=== PATIENT | female | born 1935 | race Caucasian/White ===

== ENCOUNTER 2018-05-20 12:16 | Emergency (ER) | payer MEDICARE ==
[~2018-05-20] VITALS: Ht 147.3 cm; Wt 92.1 kg
[~2018-05-20 12:16] MED LIST: CARVEDILOL3.125 MG PO; LEXAPRO10 MG PO; LOSARTAN POTASS25 MG; QUETIAPINE FUM100 MG PO
--- OUTSIDE RECORDS SUMMARY | 2018-05-20 12:18 | XMS REPORT | Clinical Summary ---
Author Author OMAR [facility] Address Unknown Phone Unavailable Care Team Providers Care Rental Clerk Name Role Phone ZakMp Alex PCP Unavailable Bowen Adler 31 Unavailable Allergies Comments Active Allergy Reactions Severity Noted Date Other reaction(s): Other Insomnia, confusion, disorientation. Baclofen 10/11/2016 "climbing the [place]" Propoxyphene Other (See 02/15/2013 Comments) Other reaction(s): Other Severe Insomnia Donepezil Hcl 10/11/2016 "dehydrated" Oxybutynin Other (See 02/15/2013 Comments) Propoxyphene Hcl 10/11/2016 "climbed the [place]", jittery Pseudoephedrine Hcl Other (See 02/15/2013 Comments) "dehydration" Sulfa (Sulfonamide Other (See 02/15/2013 Antibiotics) Comments) Other reaction(s): Cough Cough. Lisinopril Other (See 02/15/2013 Comments) Medications End Date Status Medication Sig Dispensed Refills Start Date Active ascorbic acid (VITAMIN C) Take 1 tablet 0 1000 MG tablet by mouth. Active pantoprazole (PROTONIX) Take 40 mg by 0 40 MG tablet mouth. 5 Active QUEtiapine (SEROQUEL) 25 Take 25 mg by 0 MG tablet mouth. 7 Active tiZANidine (ZANAFLEX) 2 Take 1-2 0 MG tablet tablets every 6 8 hours as needed for muscle spasm or strain. Active cyanocobalamin 500 MCG Take 1 tablet 0 tablet by mouth. Active ferrous sulfate 325 (65 Take 1 tablet 0 FE) MG tablet (325 mg 7 total) by mouth 2 (two) times daily with breakfast and dinner. Active acetaminophen-codeine Take 1 tablet 0 (TYLENOL #3) 300-30 mg by mouth. 8 per tablet Active CRANBERRY FRUIT EXTRACT Take by 0 (CRANBERRY ORAL) mouth. Active methylcellulose, Take by 0 laxative, Powd mouth. Active carvedilol (COREG) 25 MG Take 25 mg by 0 tablet mouth. 8 Active felodipine (PLENDIL) 10 Take 10 mg by 0 MG 24 hr tablet mouth. 8 Active gabapentin (NEURONTIN) Take 300 mg 0 300 MG capsule by mouth. 8 Active losartan (COZAAR) 100 MG Take 100 mg 0 tablet by mouth. 8 Active simvastatin (ZOCOR) 20 MG Take 20 mg by 0 tablet mouth. 8 Active venlafaxine (EFFEXOR-XR) Take 225 mg 0 75 MG 24 hr capsule by mouth. 11/16/2017 Discontinued venlafaxine (EFFEXOR-XR) Take 225 mg 0 75 MG 24 hr capsule by mouth daily. 3 tabs of 75 mg=total of 225 mg daily 11/16/2017 Discontinued carvedilol (COREG) 12.5 TAKE ONE (1) 0 MG tablet TABLET(S) BY 7 MOUTH TWICE A DAY.. 11/16/2017 Discontinued felodipine (PLENDIL) 10 Take 10 mg by 0 MG 24 hr tablet mouth daily . 7 11/16/2017 Discontinued gabapentin (NEURONTIN) Take 300 mg 0 300 MG capsule by mouth. 7 11/16/2017 Discontinued losartan (COZAAR) 100 MG TAKE ONE (1) 0 tablet TABLET(S) BY 6 MOUTH DAILY.. 11/16/2017 Discontinued simvastatin (ZOCOR) 20 MG Take 20 mg by 0 tablet mouth. 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 Last Filed Vital Signs Time Taken Vital Sign Reading 11/16/2017 2:36 PM CDT Blood Pressure 165/74 11/16/2017 2:36 PM CDT Pulse 95 11/16/2017 12:30 PM CDT Temperature 36.6 C (97.9 F) 11/16/2017 2:36 PM CDT Respiratory Rate 20 11/16/2017 12:30 PM CDT Oxygen Saturation 97% - Inhaled Oxygen - Concentration 11/16/2017 12:30 PM CDT Weight 84.4 kg (186 lb) 11/16/2017 12:30 PM CDT Height 147.3 cm (4' 10") 11/16/2017 12:30 PM CDT Body Mass Index 38.87 Plan of Treatment Not on file Implants Device Identifier Shelf Expiration Date Model / Serial / Lot Implanted Type Area Manufactur er 07/14/2014 [id number] / / [id number] Cement,Bone [place] Hv 40gm - Cement/Yemi Left: Knee BIOMET/O.E [id number] ler/Adhesi .C. Implanted: Qty: 2 on 02/25/2013 by Mauro Thorne MD 06/12/2015 [id number] / / [id number] Cement Restrictor,Biostop G 10mm - Cement/Yemi DEPUY [id number] ler/Adhesi SPINE Implanted: Qty: 1 on 02/25/2013 by Mauro Thorne MD 03/12/2014 [id number] / / [id number] Cement Restrictor,Biostop G 10mm - Cement/Yemi DEPUY [id number] ler/Adhesi SPINE Implanted: Qty: 1 on 02/25/2013 by Mauro Thorne MD 05/12/2015 [id number] / / [id number] Cement Restrictor,Biostop G 12mm - Cement/Yemi DEPUY [id number] ler/Adhesi SPINE Implanted: Qty: 1 on 02/25/2013 by Mauro Thorne MD 08/12/2014 [id number] / / [id number] Cement,Bone [place] Hv 40gm - Cement/Yemi BIOMET/O.E [id number] ler/Adhesi .C. Implanted: Qty: 2 on 02/25/2013 by Mauro Thorne MD 04/12/2022 [id number] / / [id number] Biomet 360 Ofset Adaptor 5mm With Left: Knee Screw Implanted: Qty: 1 on 02/25/2013 by Mauro Lemus MD 05/12/2022 [id number] / / [id number] Biomet 360 Offset Adaptor 5mm With Left: Knee Screws Implanted: Qty: 1 on 02/25/2013 by Mauro Lemus MD 03/12/2022 [id number] / / [id number] Vanguard 360 Revision System Ssk Left: Knee 360/0a 360 Distal Femoral Augment 5mm X 60mm Rl/Lm With 80lt Implanted: Qty: 1 on 02/25/2013 by Mauro Lemus MD 07/12/2022 [id number] / / [id number] Vanguard 360 Revision System Ssk Left: Knee 360/Da 360 Distal Femoral Augment [id number] Ll/Rm With Gila Implanted: Qty: 1 on 02/25/2013 by Mauro Lemus MD 01/10/2021 [id number] / / [id number] Vanguard Iuu331/Da360 Knee System Left: Knee Femoral Let-With Screw 60mm Implanted: Qty: 1 on 02/25/2013 by Mauro Lemus MD 01/10/2023 [id number] / / [id number] Biomet 360 Tibial Cruciate Wing Left: Knee Small Implanted: Qty: 1 on 02/25/2013 by Mauro Lemus MD 02/09/2017 [id number] / / [id number] Non-Constrained Vanguard Dcm Tibial Left: Knee Bearing 14 Mm X 63/67 Mm Implanted: Qty: 1 on 02/25/2013 by Mauro Lemus MD 08/12/2021 [id number] / / [id number] Biomet Smooth Knee Stem With Screw Left: Knee 10mm X 80mm Implanted: Qty: 1 on 02/25/2013 by Mauro Lemus MD 02/09/2023 [id number] / / [id number] Biomet 360 Tibial Tray With Ti Left: Knee Locking Bar & Screw 67mm Implanted: Qty: 1 on 02/25/2013 by Mauro Lemus MD Procedures Comments Procedure Name Priority Date/Time Associated Diagnosis CBC W/PLT COUNT & AUTO STAT 11/16/2017 DIFFERENTIAL 1:16 PM CDT BASIC METABOLIC PANEL (7) STAT 11/16/2017 1:16 PM CDT CBC W/PLT COUNT & AUTO STAT 11/16/2017 DIFFERENTIAL 1:16 PM CDT URINALYSIS W/ REFLEX STAT 11/16/2017 URINE CULTURE 12:45 PM CDT URINE CULTURE STAT 11/16/2017 12:45 PM CDT after 05/19/2017 Results * CBC with platelet count + automated diff (11/16/2017 1:16 PM CDT) WBC 9.1 4.0 - 10.0 10e3/L [facility] RBC 3.89 (L) 4.00 - 5.00 10e6/L [facility] Hemoglobin 11.9 (L) 12.0 - 15.0 g/dL [facility] Hematocrit 38.0 36.0 - 45.0 % [facility] MCV 97.6 82.0 - 99.0 fL [facility] MCH 30.7 27.0 - 33.0 pg [facility] MCHC 31.4 (L) 32.0 - 36.0 g/dL [facility] RDW 11.8 10.3 - 14.2 % [facility] Platelets 274 150 - 430 10e3/L [facility] MPV 7.3 6.5 - 10.5 fL [facility] % Neutros 73 % [facility] % Lymphs 16 % [facility] % Monos 9 % [facility] [place] % Eos 1 % [facility] [place] % Baso 1 % [facility] # Neutros 6.68 1.80 - 8.00 10e3/L [facility] # Lymphs 1.47 (L) 1.48 - 4.50 10e3/L [facility] [place] # Monos 0.79 0.00 - 1.30 10e3/L [facility] # Eos 0.11 0.00 - 0.50 10e3/L [facility] # Baso 0.05 0.00 - 0.20 10e3/L [facility] Specimen Blood - Line, Venous Performing Organization Address City/State/Zipcode Phone Number [facility] [address] [place] [address] [facility] * Basic Metabolic Panel (11/16/2017 1:16 PM CDT) Sodium 145 135 - 148 meq/L [facility] Potassium 4.3 3.6 - 5.5 meq/L [facility] Chloride 104 98 - 106 meq/L [facility] CO2 27 24 - 32 meq/L [facility] BUN 20 10 - 26 mg/dL [facility] Creatinine 1.07 0.50 - 1.20 mg/dL [facility] Glucose 137 (H) 70 - 110 mg/dL [facility] Calcium 9.9 8.5 - 10.5 mg/dL [facility] EGFR 49Comment: ESTIMATED GFR IS mL/min/1.73 sq m [facility] NOT ACCURATE CREATININE [facility] CLEARANCE IN [facility] GLOMERULAR FILTRATION RATE. EMERGENCY CENTER, ESTIMATED GFR IS NOT [facility] APPLICABLE FOR DIALYSIS PATIENTS. Specimen Blood - Line, Venous Performing Organization Address City/State/Zipcode Phone Number [facility] [address] [place] [address] [facility], [facility] [place] * Urinalysis w/Microscopic + Reflex to Culture (11/16/2017 12:45 PM CDT) Color, UA Yellow [facility] Clarity, UA Clear [facility] Specific [place], UA 1.015 1.001 - 1.035 [facility] pH, UA 7.0 5.0 - 8.0 [facility] Protein, UA Negative Negative [facility] Glucose, UA Negative Negative [facility] Ketones, UA Trace (A) Negative [facility] Bilirubin, UA Negative Negative [facility], [facility] Blood, UA Negative Negative [facility], [facility] Nitrite, UA Negative Negative [facility], [facility] [place] Leukocytes, UA Trace (A) Negative [facility], [facility] Urobilinogen, UA 0.2 0.2 - 1.0 mg/dL [facility], [facility], [facility] RBC, UA <5 /HPF [facility], [facility], [facility] WBC, UA <5 /HPF [facility], [facility], [facility] SQUAMOUS EPITHELIAL <5 /HPF [facility] Specimen Source [facility], [facility], [facility] Specimen Urine - Urine, Clean Catch Performing Organization Address City/[facility]/Zipcode Phone Number [facility] [address] [place] [address] [facility], [facility] [place] * Urine culture (11/16/2017 12:45 PM CDT) Result See comment [facility] Specimen Urine - Urine, Clean Catch Narrative Performed At <10,000 col/mL Gram Negative kayla of two types [facility] Performing Organization Address City/State/Zipcode Phone Number [facility] [address] [place] [address] MEDICAL CENTER after 05/19/2017 Insurance Payer Benefit Subscriber ID Type Phone Address Plan / Group [employer] xxxxxxxxxxx MEDICARE ADV Advance Directives For more information, please contact: [facility] [address] [place] [address] Date Inactivated Comments Code Status Date Activated 2016 1:33 PM Full Code 10/11/2016 6:56 PM This code status was determined by: Patient 02/25/2013 6:26 PM All possible means of support including;cardiac massage, mechanical ventilation, and defibrillation will be used to support life. Code ONE 02/25/2013 9:48 AM
--- OUTSIDE RECORDS SUMMARY | 2018-05-20 12:18 | XMS REPORT ---
Author Author [facility] Address Unknown Phone Unavailable Care Team Providers Care Learning And Development Specialist Name Role Phone SUMA GUZMAN Unavailable Unavailable FREDA DA SILVA Unavailable Unavailable Problems This patient has no known problems. Allergies, Adverse Reactions, Alerts This patient has no known allergies or adverse reactions. Medications This patient has no known medications. Results Test Description Test Time Test Comments Text Results Atomic Results Result Comments CBC W/PLT COUNT & AUTO DIFFERENTIAL 2017-11-16 13:35:00 WHITE BLOOD CELL COUNT (BEAKER) (test dhkb=637) 9.1 10e3/i? L 4.0-10.0 RED BLOOD CELL COUNT (BEAKER) (test fflk=957) 3.89 10e6/i? L 4.00-5.00 HEMOGLOBIN (BEAKER) (test zceu=805) 11.9 g/dL 12.0-15.0 HEMATOCRIT (BEAKER) (test rkal=249) 38.0 % 36.0-45.0 MEAN CORPUSCULAR VOLUME (BEAKER) (test khmk=335) 97.6 fL 82.0-99.0 MEAN CORPUSCULAR HEMOGLOBIN (BEAKER) (test jhau=741) 30.7 pg 27.0-33.0 MEAN CORPUSCULAR HEMOGLOBIN CONC (BEAKER) (test dbcm=931) 31.4 g/dL 32.0-36.0 RED CELL DISTRIBUTION WIDTH (BEAKER) (test zmjf=816) 11.8 % 10.3-14.2 PLATELET COUNT (BEAKER) (test fiit=807) 274 10e3/i? L 150-430 MEAN PLATELET VOLUME (BEAKER) (test gclw=957) 7.3 fL 6.5-10.5 NEUTROPHILS RELATIVE PERCENT (BEAKER) (test kfer=660) 73 % LYMPHOCYTES RELATIVE PERCENT (BEAKER) (test aque=244) 16 % MONOCYTES RELATIVE PERCENT (BEAKER) (test xltn=474) 9 % EOSINOPHILS RELATIVE PERCENT (BEAKER) (test vhzl=242) 1 % BASOPHILS RELATIVE PERCENT (BEAKER) (test htgc=180) 1 % NEUTROPHILS ABSOLUTE COUNT (BEAKER) (test cdvl=955) 6.68 10e3/i? L 1.80-8.00 LYMPHOCYTES ABSOLUTE COUNT (BEAKER) (test ecsv=047) 1.47 10e3/i? L 1.48-4.50 MONOCYTES ABSOLUTE COUNT (BEAKER) (test ocrq=785) 0.79 10e3/i? L 0.00-1.30 EOSINOPHILS ABSOLUTE COUNT (BEAKER) (test uqpj=850) 0.11 10e3/i? L 0.00-0.50 BASOPHILS ABSOLUTE COUNT (BEAKER) (test hqtp=303) 0.05 10e3/i? L 0.00-0.20 BASIC METABOLIC [id number] 13:34:00* Test Item Value Reference Range Comments SODIUM (BEAKER) (test zfua=028) 145 meq/L 135-148 POTASSIUM (BEAKER) (test imzs=313) 4.3 meq/L 3.6-5.5 CHLORIDE (BEAKER) (test jkfu=948) 104 meq/L 98-106 CO2 (BEAKER) (test gczm=775) 27 meq/L 24-32 BLOOD UREA NITROGEN (BEAKER) (test srex=538) 20 mg/dL 10-26 CREATININE (BEAKER) (test jdhc=182) 1.07 mg/dL 0.50-1.20 GLUCOSE RANDOM (BEAKER) (test ztzn=811) 137 mg/dL 70-110 CALCIUM (BEAKER) (test pttx=912) 9.9 mg/dL 8.5-10.5 EGFR (BEAKER) (test loqa=5135) 49 mL/min/1.73 sq m ESTIMATED GFR IS NOT ACCURATE CREATININE CLEARANCE IN PREDICTING GLOMERULAR FILTRATION RATE. ESTIMATED GFR IS NOT APPLICABLE FOR DIALYSIS PATIENTS. URINALYSIS W/ REFLEX URINE [id number] 12:58:00* Test Item Value Reference Range Comments COLOR (BEAKER) (test pcvg=179) Yellow CLARITY (BEAKER) (test nqmf=121) Clear SPECIFIC GRAVITY UA (BEAKER) (test tafo=553) 1.015 1.001-1.035 PH UA (BEAKER) (test zfxc=369) 7.0 5.0-8.0 PROTEIN UA (BEAKER) (test gceq=869) Negative Negative GLUCOSE UA (BEAKER) (test kvwz=282) Negative Negative KETONES UA (BEAKER) (test nvgj=892) Trace Negative BILIRUBIN UA (BEAKER) (test julz=689) Negative Negative BLOOD UA (BEAKER) (test scqg=938) Negative Negative NITRITE UA (BEAKER) (test ourw=539) Negative Negative LEUKOCYTE ESTERASE UA (BEAKER) (test jkwn=461) Trace Negative UROBILINOGEN UA (BEAKER) (test xjxz=358) 0.2 mg/dL 0.2-1.0 RBC UA-MANUAL (BEAKER) (test uije=5309) <5 /HPF WBC UA-MANUAL (BEAKER) (test bpxg=0958) <5 /HPF SQUAMOUS EPITHELIAL MANUAL (BEAKER) (test jpvr=1025) <5 /HPF SOURCE(BEAKER) (test uggt=0602) URINE [id number] 12:08:00* Test Item Value Reference Range Comments CULTURE (BEAKER) (test bizi=3410) >100,000 col/mL skin blanco HEMOGLOBIN AND [id number] 05:34:00* Test Item Value Reference Range Comments HEMOGLOBIN (BEAKER) (test klzt=146) 9.6 GM/DL 12.0-15.0 HEMATOCRIT (BEAKER) (test uymu=456) 30.7 % 36.0-45.0 VITAMIN B12 AND [id number] 08:18:00* Test Item Value Reference Range Comments VITAMIN B12 (BEAKER) (test cnsl=730) > pg/mL 213-816 FOLATE (BEAKER) (test etiz=484) 10.1 ng/mL >=7.0 Effective 05/31/2014: Folate Reference Range ChangeNew: >=7.0 Previous: >=5.4 [id number] 08:05:00* Test Item Value Reference Range Comments FERRITIN (BEAKER) (test ujhk=894) 7 ng/mL 5-275 Effective 05/31/2014: Reference Range ChangeNew: Male 5-275 Previous: Male 22-322 Female 5-275 Female 10-291 IRON, TIBC, % SAT. (WITHOUT FERRITIN)2016-10-12 07:30:00* Test Item Value Reference Range Comments IRON (BEAKER) (test hbgg=422) 210 ug/dL 40-160 TOTAL IRON BINDING CAPACITY (BEAKER) (test jlfm=041) 313 ug/dL 250-450 IRON % SATURATION (2) (BEAKER) (test wlak=1724) 67 % 20-55 HEMOGLOBIN AND [id number] 07:21:00* Test Item Value Reference Range Comments HEMOGLOBIN (BEAKER) (test gala=974) 8.1 GM/DL 12.0-15.0 HEMATOCRIT (BEAKER) (test qpfh=826) 25.2 % 36.0-45.0 RETICULOCYTE [id number] 07:09:00* Test Item Value Reference Range Comments RETICULOCYTE COUNT PCT (BEAKER) (test ffvw=382) 1.6 % 0.4-2.9 [id number] 13:14:00* Test Item Value Reference Range Comments PROTIME (BEAKER) (test twib=200) 13.2 seconds 11.7-14.7 INR (BEAKER) (test iwuo=866) 1.0 <=5.9 PARTIAL THROMBOPLASTIN TIME (BEAKER) (test hgiw=695) 28.3 seconds 22.5-36.0 RECOMMENDED COUMADIN/WARFARIN INR THERAPY RANGESSTANDARD DOSE: 2.0 - 3.0 Inclu johnie: PROPHYLAXIS for venous thrombosis, systemic embolization; TREATMENT for theron ous thrombosis and/or pulmonary embolus.HIGH RISK: Target INR is 2.5-3.5 for pat ients with mechanical heart valves.URINALYSIS W/ [id number] 13:01:00 * Test Item Value Reference Range Comments COLOR (BEAKER) (test wkqg=973) Light Yellow CLARITY (BEAKER) (test eyfk=667) Clear SPECIFIC GRAVITY UA (BEAKER) (test ojio=037) 1.005 1.001-1.035 PH UA (BEAKER) (test gagl=887) 7.5 5.0-8.0 PROTEIN UA (BEAKER) (test cycs=476) Negative Negative GLUCOSE UA (BEAKER) (test mkza=217) Negative Negative KETONES UA (BEAKER) (test wktj=369) Negative Negative BILIRUBIN UA (BEAKER) (test ijfk=736) Negative Negative BLOOD UA (BEAKER) (test nkrk=149) Negative Negative NITRITE UA (BEAKER) (test fxrb=569) Negative Negative LEUKOCYTE ESTERASE UA (BEAKER) (test foqn=261) Moderate Negative UROBILINOGEN UA (BEAKER) (test oacu=669) 0.2 mg/dL 0.2-1.0 RBC UA (BEAKER) (test bqjo=151) < /HPF WBC UA (BEAKER) (test llvc=162) 6 /HPF BACTERIA (BEAKER) (test ejvd=280) Occasional SQUAMOUS EPITHELIAL (BEAKER) (test gurp=732) 4 /HPF HYALINE CASTS (BEAKER) (test ypyc=159) 2 /LPF SOURCE(BEAKER) (test irew=7457) [id number] 12:48:00* Test Item Value Reference Range Comments LIPASE (BEAKER) (test kjfm=067) 25 U/L 8-78 [id number] 12:48:00* Test Item Value Reference Range Comments AMYLASE (BEAKER) (test mgcf=018) 51 U/L 25-125 BASIC METABOLIC [id number] 12:48:00* Test Item Value Reference Range Comments SODIUM (BEAKER) (test goxh=028) 140 meq/L 136-145 POTASSIUM (BEAKER) (test vaza=453) 4.1 meq/L 3.5-5.1 CHLORIDE (BEAKER) (test ycon=505) 105 meq/L 98-107 CO2 (BEAKER) (test tqxj=025) 24 meq/L 22-29 BLOOD UREA NITROGEN (BEAKER) (test rfof=512) 13 mg/dL 7-21 CREATININE (BEAKER) (test rkbp=960) 1.20 mg/dL 0.57-1.25 GLUCOSE RANDOM (BEAKER) (test pjah=523) 129 mg/dL 70-105 CALCIUM (BEAKER) (test pbrk=366) 8.8 mg/dL 8.4-10.2 EGFR (BEAKER) (test nkic=5508) 43 mL/min/1.73 sq m ESTIMATED GFR IS NOT ACCURATE CREATININE CLEARANCE IN PREDICTING GLOMERULAR FILTRATION RATE. ESTIMATED GFR IS NOT APPLICABLE FOR DIALYSIS PATIENTS. HEPATIC FUNCTION [id number] 12:48:00* Test Item Value Reference Range Comments TOTAL PROTEIN (BEAKER) (test oiaz=070) 6.8 gm/dL 6.0-8.3 ALBUMIN (BEAKER) (test eqok=6275) 3.9 g/dL 3.5-5.0 BILIRUBIN TOTAL (BEAKER) (test vxih=328) 0.3 mg/dL 0.2-1.2 BILIRUBIN DIRECT (BEAKER) (test zmbj=762) 0.2 mg/dL 0.1-0.5 ALKALINE PHOSPHATASE (BEAKER) (test oory=978) 106 U/L 40-150 AST (SGOT) (BEAKER) (test cjhg=244) 13 U/L 5-34 ALT (SGPT) (BEAKER) (test lses=612) 16 U/L 6-55 CBC W/PLT COUNT & AUTO [id number] 12:36:00* Test Item Value Reference Range Comments WHITE BLOOD CELL COUNT (BEAKER) (test xpxa=156) 6.6 K/ L 4.0-10.0 RED BLOOD CELL COUNT (BEAKER) (test gxdy=952) 3.36 M/ L 4.00-5.00 HEMOGLOBIN (BEAKER) (test phii=434) 8.5 GM/DL 12.0-15.0 HEMATOCRIT (BEAKER) (test nofu=082) 27.5 % 36.0-45.0 MEAN CORPUSCULAR VOLUME (BEAKER) (test qbqo=871) 81.8 fL 82.0-99.0 MEAN CORPUSCULAR HEMOGLOBIN (BEAKER) (test fgdf=988) 25.2 pg 27.0-33.0 MEAN CORPUSCULAR HEMOGLOBIN CONC (BEAKER) (test ccxx=455) 30.8 GM/DL 32.0-36.0 RED CELL DISTRIBUTION WIDTH (BEAKER) (test uqtw=734) 16.5 % 10.3-14.2 PLATELET COUNT (BEAKER) (test eqva=157) 294 K/CU MM 150-430 MEAN PLATELET VOLUME (BEAKER) (test auvd=026) 7.7 fL 6.5-10.5 NUCLEATED RED BLOOD CELLS (BEAKER) (test eryc=622) 0 /100 WBC 0-0 NEUTROPHILS RELATIVE PERCENT (BEAKER) (test orrz=131) 68 % LYMPHOCYTES RELATIVE PERCENT (BEAKER) (test igyx=609) 18 % MONOCYTES RELATIVE PERCENT (BEAKER) (test xfsy=592) 10 % EOSINOPHILS RELATIVE PERCENT (BEAKER) (test kfpo=926) 3 % BASOPHILS RELATIVE PERCENT (BEAKER) (test rrik=553) 1 % NEUTROPHILS ABSOLUTE COUNT (BEAKER) (test ewyg=142) 4.52 K/ L 1.80-8.00 LYMPHOCYTES ABSOLUTE COUNT (BEAKER) (test ufig=478) 1.19 K/ L 1.48-4.50 MONOCYTES ABSOLUTE COUNT (BEAKER) (test xbgd=192) 0.66 K/ L 0.00-1.30 EOSINOPHILS ABSOLUTE COUNT (BEAKER) (test szfx=649) 0.22 K/ L 0.00-0.50 BASOPHILS ABSOLUTE COUNT (BEAKER) (test vzgp=518) 0.05 K/ L 0.00-0.20 0.00
[2018-05-20] MEDS ORDERED: TRAMADOL HCL 50 MG TAB PO ONE (14:00)
--- NOTE | 2018-05-20 14:02 | Diagnostic Imaging Report ---
History:Fall. Right head pain Comparison studies:None Technique: Axial images were obtained from the skull base to the vertex. Coronal and sagittal images reconstructed from the axial data. Intravenous contrast: None Dose modulation, iterative reconstruction, and/or weight based adjustment of the mA/kV was utilized to reduce the radiation dose to as low as reasonably achievable. Findings: Scalp/skull: No abnormalities. Extra-axial spaces: No masses. No fluid collections. Brain sulci: Mildly prominent. Ventricles: Mild compensatory dilatation. No hydrocephalus. Parenchyma: Small hypodensities in the supratentorial white matter are small vessel ischemic changes. No masses, hemorrhage, acute or chronic cortical vascular insults. Sellar/suprasellar region: No abnormalities. Craniocervical junction: Patent foramen magnum. No Chiari one malformation. Incidental findings: Atherosclerotic calcifications in the carotid siphons . Impression: No acute abnormalities. Chronic findings: 1. Mild generalized volume loss. 2. Mild supratentorial white matter small vessel ischemic changes. Signed by: DR Eliot Cordoba M.D. on 05/20/2018 1:59 PM
--- NOTE | 2018-05-20 14:07 | Diagnostic Imaging Report ---
RIGHT TIBIA AND FIBULA - 5 VIEWS RIGHT ANKLE - 3 VIEWS RIGHT FOOT - 3 VIEWS HISTORY: Fell, injured ankle, pain, rule out fracture COMPARISON: None available. FINDINGS: Bones: Diffusely decreased mineralization of the osseous structures limits bone detail. Postsurgical versus posttraumatic attenuation of the distal aspect of the second proximal phalanx. A single metallic screw at the distal diaphysis of the first metatarsal bone. Small plantar calcaneal and dorsal calcaneal enthesophytes. Joints: Status post total knee arthroplasty. Severe hallux valgus deformity with associated moderate degenerative changes of the first metatarsophalangeal joint. Severe degenerative changes of the tarsometatarsal joints, additional mild to moderate scattered degenerative changes. Soft tissues: Soft tissue attenuation, with partially limits sensitivity of the exam. IMPRESSION: 1. No acute radiographic abnormality. 2. Diffuse osseous demineralization. 3. Postsurgical changes, without evidence of hardware loosening or failure. 4. 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 5. Chronic calcaneal enthesopathy. Signed by: Dr. Charles Schroeder D.O., M.M.M. on 05/20/2018 2:03 PM
== END 2018-05-20 16:18 | disposition home or self-care (01) ==
LOC: ER 12:16
DX: S00.83XA Contusion of other part of head, initial encounter (principal); M25.571 Pain in right ankle and joints of right foot; W01.198A Fall on same level from slipping, tripping and stumbling with subsequent striking against other object, initial encounter; Y92.002 Bathroom of unspecified non-institutional (private) residence as the place of occurrence of the external cause; I10 Essential (primary) hypertension; F41.9 Anxiety disorder, unspecified; F32.9 Major depressive disorder, single episode, unspecified; K21.9 Gastro-esophageal reflux disease without esophagitis
CPT/HCPCS: 70450; 99283

== ENCOUNTER 2018-07-28 08:50 | Emergency (ER) | payer MEDICARE ==
[~2018-07-28] VITALS: Ht 147.3 cm; Wt 73.9 kg
--- OUTSIDE RECORDS SUMMARY | 2018-07-28 08:53 | XMS REPORT | Clinical Summary ---
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 7 Active ferrous sulfate 325 (65 Take 1 tablet 0 FE) MG tablet (325 mg 7 total) by mouth 2 (two) times daily with breakfast and dinner. Active CRANBERRY FRUIT EXTRACT Take by 0 (CRANBERRY ORAL) mouth. Active methylcellulose, Take by 0 laxative, Powd mouth. Active carvedilol (COREG) 25 MG Take 25 mg by 0 tablet mouth. 8 Active gabapentin (NEURONTIN) Take [...] of 75 mg=total of 225 mg daily 07/18/2018 Discontinued tiZANidine (ZANAFLEX) 2 Take 1-2 0 MG tablet tablets every 6 8 hours as needed for muscle spasm or strain. 11/16/2017 Discontinued carvedilol (COREG) 12.5 TAKE ONE (1) 0 MG tablet TABLET(S) BY 7 MOUTH TWICE A DAY.. 07/18/2018 Discontinued cyanocobalamin 500 MCG Take 1 tablet 0 tablet by mouth. 11/16/2017 Discontinued felodipine (PLENDIL) 10 Take 10 mg by 0 MG 24 hr tablet mouth daily . 7 11/16/2017 Discontinued gabapentin (NEURONTIN) Take 300 mg 0 300 MG capsule by mouth. 7 11/16/2017 Discontinued losartan (COZAAR) 100 MG TAKE ONE (1) 0 tablet TABLET(S) BY 6 MOUTH DAILY.. 11/16/2017 Discontinued simvastatin (ZOCOR) 20 MG Take 20 mg by 0 tablet mouth. 7 07/18/2018 Discontinued acetaminophen-codeine Take 1 tablet 0 (TYLENOL #3) 300-30 mg by mouth. 8 per tablet 07/18/2018 Discontinued felodipine (PLENDIL) 10 Take 10 mg by 0 MG 24 hr tablet mouth. 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 Encounters Care Team Description Date Type Specialty 07/18/2018 Orders Only General Internal Medicine 07/18/2018 Travel Allen Arango DO Nazario-Irizarry, Emanuel, MD Acute cystitis without hematuria (Primary Dx); Confusion; Bilateral leg edema; Elevated brain natriuretic peptide (BNP) level; Essential hypertension 07/17/2018 Emergency General Internal Medicine - 07/18/2018 07/17/2018 Travel Mike Mir MD Urinary frequency (Primary Dx); Generalized weakness; Acute diarrhea; Malaise; Rhinorrhea 11/16/2017 Emergency Emergency Medicine after 07/27/2017 Social History Date Tobacco Use Types Packs/Day Years Used Never Smoker Smokeless Tobacco: Never Used Alcohol Use Drinks/Week oz/Week Comments No Sex Assigned at Date Recorded Not on file Industry Job Start Date Occupation Not on file Not on file Not on file Travel End Travel History Travel Start No recent travel history available. Last Filed Vital Signs Time Taken Vital Sign Reading 07/18/2018 3:24 PM REFRIGERATOR ROOM CLERK Blood Pressure 129/69 07/18/2018 3:24 PM REFRIGERATOR ROOM CLERK Pulse 79 07/18/2018 3:24 PM REFRIGERATOR ROOM CLERK Temperature 35.8 C (96.5 F) 07/18/2018 3:24 PM REFRIGERATOR ROOM CLERK Respiratory Rate 18 07/18/2018 3:24 PM REFRIGERATOR ROOM CLERK Oxygen Saturation 95% - Inhaled Oxygen - Concentration 07/18/2018 3:05 AM REFRIGERATOR ROOM CLERK Weight 82.7 kg (182 lb 5.1 oz) 07/18/2018 5:00 AM REFRIGERATOR ROOM CLERK Height 144.8 cm (4' 9") 07/18/2018 3:05 AM REFRIGERATOR ROOM CLERK Body Mass Index 39.45 Plan of Treatment Not on file Implants Device Identifier Shelf Expiration Date Model / Serial / Lot Implanted Type Area Manufactur er 07/14/2014 [id number] / / [id number] Cement,Bone [place] Hv 40gm - Cement/Yemi Left: Knee BIOMET/O.E [id number] ler/Adhesi .C. Implanted: Qty: 2 on 02/25/2013 by Mauro Thorne MD 06/12/2015 [id number] / / [id number] Cement Restrictor,Biostop G 10mm - Cement/Yemi DEPUY [id number] ler/Adhesi SPINE Implanted: Qty: 1 on 02/25/2013 by Mauro Thorne MD 03/12/2014 [id number] / / [id number] Cement Restrictor,Biostop G 10mm - Cement/Yemi DEPUY [id number] ler/Adhesi SPINE Implanted: Qty: 1 on 02/25/2013 by Mauro Thorne MD 05/12/2015 [id number] / / [id number] Cement Restrictor,Biostop G 12mm - Cement/Yemi DEPUY [id number] ler/Adhesi SPINE Implanted: Qty: 1 on 02/25/2013 by Mauro Thorne MD 08/12/2014 [id number] / / [id number] Cement,Bone [place] Hv 40gm - Cement/Yemi BIOMET/O.E [id number] ler/Adhesi .C. Implanted: Qty: 2 on 02/25/2013 by Mauro Thorne MD 04/12/2022 [id number] / / [id number] Biomet 360 Ofset Adaptor 5mm With Left: Knee Screw Implanted: Qty: 1 on 02/25/2013 by Mauro Lemus MD 05/12/2022 [id number] / / [id number] Biomet 360 Offset Adaptor 5mm With Left: Knee Screws Implanted: Qty: 1 on 02/25/2013 by Mauro Lemus MD 03/12/2022 [id number] / / [id number] Vanguard 360 Revision System Ssk Left: Knee 360/0a 360 Distal Femoral Augment 5mm X 60mm Rl/Lm With 80lt Implanted: Qty: 1 on 02/25/2013 by Mauro Lemus MD 07/12/2022 [id number] / / [id number] Vanguard 360 Revision System Ssk Left: Knee 360/Da 360 Distal Femoral Augment [id number] Ll/Rm With [place] Implanted: Qty: 1 on 02/25/2013 by Mauro Lemus MD 01/10/2021 [id number] / / [id number] Vanguard Ecw350/Da360 Knee System Left: Knee Femoral Let-With Screw 60mm Implanted: Qty: 1 on 02/25/2013 by Mauro Lemus MD 01/10/2023 [id number] / / [id number] Biomet 360 Tibial Cruciate Wing Left: Knee Small Implanted: Qty: 1 on 02/25/2013 by Mauro Lemus MD 02/09/2017 [id number] / / [id number] Non-Constrained Vanguard Dcm Tibial Left: Knee Bearing 14 Mm X 63/67 Mm Implanted: Qty: 1 on 02/25/2013 by Mauro Lemus MD 08/12/2021 [id number] / / [id number] Biomet Smooth Knee Stem With Screw Left: Knee 10mm X 80mm Implanted: Qty: 1 on 02/25/2013 by Mauro Lemus MD 02/09/2023 [id number] / / [id number] Biomet 360 Tibial Tray With Ti Left: Knee Locking Bar & Screw 67mm Implanted: Qty: 1 on 02/25/2013 by Mauro Lemus MD Procedures Comments Procedure Name Priority Date/Time Associated Diagnosis (CELLAVISION MANUAL DIFF) Routine 07/18/2018 6:43 AM REFRIGERATOR ROOM CLERK CBC W/PLT COUNT & AUTO Routine 07/18/2018 DIFFERENTIAL 6:43 AM REFRIGERATOR ROOM CLERK CBC W/PLT COUNT & AUTO Routine 07/18/2018 DIFFERENTIAL 6:43 AM REFRIGERATOR ROOM CLERK URINALYSIS W/ MICROSCOPIC STAT 07/18/2018 1:32 AM REFRIGERATOR ROOM CLERK URINE CULTURE STAT 07/18/2018 1:32 AM REFRIGERATOR ROOM CLERK ECG 12-LEAD Routine 07/18/2018 12:15 AM REFRIGERATOR ROOM CLERK ED ECG INTERPRETATION Routine 07/17/2018 10:39 PM REFRIGERATOR ROOM CLERK CBC W/PLT COUNT & AUTO STAT 07/17/2018 DIFFERENTIAL 10:31 PM REFRIGERATOR ROOM CLERK B-TYPE NATRIURETIC FACTOR STAT 07/17/2018 (BNP) 10:31 PM REFRIGERATOR ROOM CLERK RAPID CK-MB STAT 07/17/2018 10:31 PM REFRIGERATOR ROOM CLERK RAPID TROPONIN I STAT 07/17/2018 10:31 PM REFRIGERATOR ROOM CLERK COMPREHENSIVE METABOLIC STAT 07/17/2018 PANEL 10:31 PM REFRIGERATOR ROOM CLERK CBC W/PLT COUNT & AUTO STAT 07/17/2018 DIFFERENTIAL 10:31 PM REFRIGERATOR ROOM CLERK CBC W/PLT COUNT & AUTO STAT 11/16/2017 DIFFERENTIAL 1:16 PM CDT BASIC METABOLIC PANEL (7) STAT 11/16/2017 1:16 PM CDT CBC W/PLT COUNT & AUTO STAT 11/16/2017 DIFFERENTIAL 1:16 PM CDT URINALYSIS W/ REFLEX STAT 11/16/2017 URINE CULTURE 12:45 PM CDT URINE CULTURE STAT 11/16/2017 12:45 PM CDT after 07/27/2017 Results * Manual Differential (07/18/2018 6:43 AM REFRIGERATOR ROOM CLERK) % Neutros 70 % [facility] % Lymphs 13 % [facility] % Monos 11 % [facility] % Eos 4 % [facility] % Baso 1 % [facility] % Atypical Lymphs 1 (H) 0 - 0 % [facility] # Neutros 6.86 (H) 1.56 - 6.13 K/ul [facility] # Lymphs 1.27 1.18 - 3.74 K/ul [facility] # Monos 1.08 (H) 0.24 - 0.36 K/uL [facility] # Eos 0.39 (H) 0.04 - 0.36 K/uL [facility] # Baso 0.10 (H) 0.01 - 0.08 K/uL [facility] # Atypical Lymphs 0.10 (H) 0.00 - 0.00 K/uL [facility] Total Counted 100 [facility] WBC Morphology Normal [facility] Platelet Morphology Normal [facility] Polychromasia 1+ few [facility] Hypochromia 1+ few [facility] Ovalocytes 1+ few [facility] Artifact Present [facility] Platelet Conc Adequate [facility] Specimen Blood Narrative Performed At Received comment: [facility] User comments: [facility] Slide comments: Performing Organization Address City/[facility] Centercode Phone Number [facility] [address] [place] [address] [facility] * CBC with platelet count + automated diff (07/18/2018 6:43 AM REFRIGERATOR ROOM CLERK) Only the most recent of 3 results within the time period is included. WBC 9.8 3.5 - 10.5 K/L [facility] RBC 3.96 3.93 - 5.22 M/L [facility] Hemoglobin 11.7 11.2 - 15.7 GM/DL [facility] Hematocrit 36.2 34.1 - 44.9 % [facility] MCV 91.4 79.4 - 94.8 fL [facility] MCH 29.5 25.6 - 32.2 pg [facility] MCHC 32.3 32.2 - 35.5 GM/DL [facility] RDW 13.3 11.7 - 14.4 % [facility] Platelets 266 150 - 450 K/CU MM [facility] MPV 10.3 9.4 - 12.3 fL [facility] nRBC 0 0 - 0 /100 WBC [facility] Specimen Blood Performing Organization Address City/[facility]/Zipcode Phone Number [facility] [address] [place] [address] [facility] * Urinalysis w/Microscopic (07/18/2018 1:32 AM REFRIGERATOR ROOM CLERK) Color, UA Yellow [facility] Clarity, UA Clear [facility] Specific [place], UA 1.015 1.001 - 1.035 [facility] pH, UA 6.0 5.0 - 8.0 [facility] Protein, UA Negative Negative [facility] Glucose, UA Negative Negative [facility] Ketones, UA 15 mg/dL (A) Negative [facility] Bilirubin, UA Negative Negative [facility] Blood, UA Negative Negative [facility] Nitrite, UA Negative Negative [facility] Leukocytes, UA Trace (A) Negative [facility] Urobilinogen, UA 0.2 0.2 - 1.0 mg/dL [facility] Bacteria, UA None Seen [facility] Mucus Occasional [facility] RBC, UA <5 /HPF [facility] WBC, UA <5 /HPF [facility] SQUAMOUS EPITHELIAL <5 /HPF [facility] Specimen Source [facility] Specimen Urine - Urine, Clean Catch Performing Organization Address City/[facility] Centercode Phone Number [facility] [address] [place], [place] [phone] [facility] * Urine culture (07/18/2018 1:32 AM REFRIGERATOR ROOM CLERK) Only the most recent of 2 results within the time period is included. Result See comment [facility] Specimen Urine - Urine, Clean Catch Narrative Performed At <10,000 col/mL Gram negative kayla. [facility] 20-29,000 col/mL skin blanco [facility] Performing Organization Address [facility] Phone Number [facility] [address] [place] [address] MED[facility]ENTER * ECG 12 lead (07/18/2018 12:15 AM REFRIGERATOR ROOM CLERK) Narrative Performed At Ventricular Rate 83 BPM GE MUSE Atrial Rate 83 BPM P-R Interval 200 ms QRS Duration 78 ms Q-T Interval 378 ms QTC Calculation(Bazett) 444 ms P Ledbetter 45 degrees R Ledbetter 23 degrees T Ledbetter 28 degrees Sinus rhythm with Premature atrial complexes 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) Nonspecific T wave abnormality anterior leads Abnormal ECG When compared with ECG of11 OCT 2016 QRS axis has shifted from right Confirmed by MD SILVA YOCHAI ([id number]) on 07/20/2018 6:43:11 AM Procedure Note Interface, External Ris In - 07/20/2018 6:43 AM REFRIGERATOR ROOM CLERK Ventricular Rate 83 BPM Atrial Rate 83 BPM P-R Interval 200 ms QRS Duration 78 ms Q-T Interval 378 ms QTC Calculation(Bazett) 444 ms P Ledbetter 45 degrees R Ledbetter 23 degrees T Ledbetter 28 degrees Sinus rhythm with Premature atrial complexes 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) Nonspecific T wave abnormality anterior leads Abnormal ECG When compared with ECG of 11 OCT 2016 QRS axis has shifted from right Confirmed by MD SILVA YOCHAI ([id number]) on 07/20/2018 6:43:11 AM Performing Organization Address City/[facility] Phone Number [employer] [facility] * ECG/EKG Interpretation (07/17/2018 10:39 PM REFRIGERATOR ROOM CLERK) Narrative Performed At Allen Arango DO 07/18/2018 12:35 AM ECG/EKG Interpretation Date/Time: 07/18/2018 12:15 AM Performed by: Allen Arango DO Authorized by: Allen Arango DO The ECG was interpreted by ED physician. This ECG was not compared with previous ECG(s).The ECG is interpreted as sinus rhythm. Rate is normal rate. Heart rate is 83 BPM. Abnormal conduction noted: 1st degree. ST segments normal. Ledbetter is normal. Clinical Impression: non-specific ECGECG reviewed and does not meet STEMI criteria. Patient tolerance: Patient tolerated the procedure well with no immediate complications * Rapid Troponin I ([facility] Only) (07/17/2018 10:31 PM REFRIGERATOR ROOM CLERK) Rapid Troponin I <0.05 <0.05 ng/mL [facility] Specimen Blood Performing Organization Address [facility] Phone Number [address] [phone] [facility] * Rapid CK-MB ([facility] Only) (07/17/2018 10:31 PM REFRIGERATOR ROOM CLERK) Rapid CKMB 3.5 0.0 - 4.3 ng/mL [facility] Specimen Blood Performing Organization Address [facility] Phone Number [address] [phone] [facility] * B-type natriuretic peptide (07/17/2018 10:31 PM REFRIGERATOR ROOM CLERK) BNP 224 (H) 0 - 100 pg/mL [facility] Specimen Blood Performing Organization Address [facility] Centercode Phone Number [address] [phone] [facility] * Comprehensive metabolic panel (07/17/2018 10:31 PM REFRIGERATOR ROOM CLERK) Protein, Total 7.3 6.0 - 8.5 gm/dL [facility] Albumin 4.2 3.5 - 5.0 g/dL [facility] Alkaline Phosphatase 139 (H) 30 - 115 U/L [facility] Total Bilirubin 0.6 0.1 - 1.2 mg/dL [facility] Sodium 133 (L) 135 - 148 meq/L [facility] Potassium 3.8 3.6 - 5.5 meq/L [facility] Chloride 96 (L) 98 - 106 meq/L [facility] CO2 22 (L) 24 - 32 meq/L [facility] BUN 16 10 - 26 mg/dL [facility] Creatinine 0.97 0.50 - 1.20 mg/dL [facility] Glucose 85 70 - 110 mg/dL [facility] Calcium 8.2 (L) 8.5 - 10.5 mg/dL [facility] AST 30 5 - 40 U/L [facility] ALT 21 5 - 50 U/L [facility] EGFR 55Comment: ESTIMATED GFR IS mL/min/1.73 sq m [facility] NOT ACCURATE CREATININE [facility] CLEARANCE IN [facility] GLOMERULAR FILTRATION RATE. EMERGENCY CENTER, ESTIMATED GFR IS NOT [facility] APPLICABLE FOR DIALYSIS PATIENTS. Specimen Blood Performing Organization Address [facility]/Zipcode Phone Number [facility] [address] [place], [place] [phone] [facility] * Basic Metabolic Panel (11/16/2017 1:16 PM CDT) Sodium 145 135 - 148 meq/L [facility] Potassium 4.3 3.6 - 5.5 meq/L [facility] Chloride 104 98 - 106 meq/L [facility] CO2 27 24 - 32 meq/L [facility] BUN 20 10 - 26 mg/dL [facility] Creatinine 1.07 0.50 - 1.20 mg/dL [facility] Glucose 137 (H) 70 - 110 mg/dL [facility] Calcium 9.9 8.5 - 10.5 mg/dL [facility] EGFR 49Comment: ESTIMATED GFR IS mL/min/1.73 sq m [facility] NOT ACCURATE CREATININE [facility] MEDICAL CLEARANCE IN [facility] GLOMERULAR FILTRATION RATE. EMERGENCY CENTER, ESTIMATED GFR IS NOT [facility] APPLICABLE FOR DIALYSIS PATIENTS. Specimen Blood - Line, Venous Performing Organization Address City/[facility]/Zipcode Phone Number [facility] [address] [place] [address] [facility] * Urinalysis w/Microscopic + Reflex to Culture (11/16/2017 12:45 PM CDT) Color, UA Yellow [facility] Clarity, UA Clear [facility] Specific [place], UA 1.015 1.001 - 1.035 [facility] pH, UA 7.0 5.0 - 8.0 [facility] Protein, UA Negative Negative [facility] Glucose, UA Negative Negative [facility] Ketones, UA Trace (A) Negative [facility] Bilirubin, UA Negative Negative [facility] Blood, UA Negative Negative [facility] Nitrite, UA Negative Negative [facility] Leukocytes, UA Trace (A) Negative [facility] Urobilinogen, UA 0.2 0.2 - 1.0 mg/dL [facility] RBC, UA <5 /HPF [facility] WBC, UA <5 /HPF [facility] SQUAMOUS EPITHELIAL <5 /HPF [facility] Specimen Source [facility] Specimen Urine - Urine, Clean Catch Performing Organization Address City/State/Zipcode Phone Number [facility] [address] [place] [address] [facility] after 07/27/2017 Insurance Payer Benefit Subscriber ID Type Phone Address Plan / Group [facility] xxxxxxxxxxx MEDICARE ADV Advance Directives For more information, please contact: [address] [address] Date Inactivated Comments Code Status Date Activated Full Code 07/18/2018 4:35 AM This code status was determined by: Patient 2016 1:33 PM Full Code 10/11/2016 6:56 PM This code status was determined by: Patient 02/25/2013 6:26 PM All possible means of support including;cardiac massage, mechanical ventilation, and defibrillation will be used to support life. Code ONE 02/25/2013 9:48 AM
[2018-07-28] MEDS ORDERED: VITAMIN D1000 UNI1 PO (09:29)
[2018-07-28] MEDS ORDERED: PANTOPRAZOLE SO40 MG PO (09:29)
[2018-07-28] MEDS ORDERED: GABAPENTIN300 MG PO (09:29)
[2018-07-28] MEDS ORDERED: CARVEDILOL25 MG PO (09:29)
[2018-07-28] MEDS ORDERED: FIBER TABS625 MG (09:29)
[2018-07-28] MEDS ORDERED: CALCIUM ACETAT667 M1 PO (09:29)
[2018-07-28] MEDS ORDERED: OXYBUTYNIN CHLOR5 MG PO (09:29)
[2018-07-28] MEDS ORDERED: VITAMIN C500 M1 (09:29)
[2018-07-28] MEDS ORDERED: PROBIOTIC & AC1 EACH (09:29)
[2018-07-28] MEDS ORDERED: LOSARTAN POTAS100 MG PO (09:29)
[2018-07-28] MEDS ORDERED: SIMVASTATIN20 MG PO (09:29)
[2018-07-28] MEDS ORDERED: QUETIAPINE FUMA25 MG PO (09:29)
[2018-07-28] MEDS ORDERED: FUROSEMIDE10 MG/1 M1 IV (09:29)
[2018-07-28] MEDS ORDERED: VITAMIN B-122500 MCG (09:29)
[2018-07-28] MEDS ORDERED: BUPROPION HCL100 MG PO (09:29)
[2018-07-28] MEDS ORDERED: FERROUS SULFAT325 MG PO (09:29)
[2018-07-28] MEDS ORDERED: VENLAFAXINE HCL75 MG PO (09:29)
[2018-07-28 10:57] VITALS: BP 120/66
== END 2018-07-28 11:00 | disposition home or self-care (01) ==
LOC: FSED 08:50
DX: F23 Brief psychotic disorder (principal); F03.90 Unspecified dementia, unspecified severity, without behavioral disturbance, psychotic disturbance, mood disturbance, and anxiety; F05 Delirium due to known physiological condition
CPT/HCPCS: 99283